=== PATIENT | female | born 1940 | race Caucasian/White ===

== ENCOUNTER 2017-03-07 15:56 | Inpatient (IN) | payer BC, MEDICARE ==
[~2017-03-07] VITALS: Ht 165.1 cm; Wt 100.7 kg
[~2017-03-07 15:56] MED LIST: AMLO10TA80; GLIPIZIDE; HTN MEDS; LOSA50TA20; NEPVIT; PRAV10TA35
[2017-03-07] MEDS ORDERED: DEXTROSE 50% WATER 50ML SYRINGE IV ONE ×3 (16:19→18:00)
[2017-03-07 16:49] LABS: BASOPHILS % 0.5 % (0.0-2.0); EOSINOPHILS % 1.3 % (0.0-5.0); HEMATOCRIT. 30.2 % (36.0-48.0); HEMOGLOBIN. 10.1 g/dL (12.0-16.0); LYMPHOCYTES % 16.9 % (20.0-50.0); MEAN CORPUSCULAR HEMOGLOBIN 29.6 pg (28.0-32.0); MEAN CORPUSCULAR VOLUME 88.1 fL (81.0-99.0); MEAN PLATELET VOLUME 7.4 fl (7.4-10.4); MONOCYTES % 7.7 % (2.0-8.0); NEUTROPHILS % 73.6 % (40.0-76.0); PLATELET 247 x1000/uL (130-400); RED BLOOD CELL COUNT 3.42 mill/uL (4.2-5.4); RED CELL DISTRIBUTION WIDTH 15.1 % (11.6-14.6)
[2017-03-07 16:50] LABS: CHLORIDE 108 mEq/L (98-107)
[2017-03-07 16:53] LABS: CARBON DIOXIDE 17 mEq/L (21-32)
[2017-03-07] MEDS ORDERED: DEXTROSE 10% WATER 500 ML IV ONE (18:00)
[2017-03-07 21:50] VITALS: BP 160/84
[2017-03-08] VITALS: BP 112/73
[2017-03-08] MEDS ORDERED: TRAMADOL 50MG TABLET PO PRN (01:00)
[2017-03-08] MEDS ORDERED: DEXTROSE 50% WATER 50ML SYRINGE IV PRN (01:45)
[2017-03-08] MEDS ORDERED: DEXT 10% WATER 1,000 ML IV SCH (02:00)
[2017-03-08 04:00] VITALS: BP 150/66
[2017-03-08 07:04] LABS: BASOPHILS % 0.3 % (0.0-2.0); EOSINOPHILS % 0.1 % (0.0-5.0); HEMOGLOBIN. 11.2 g/dL (12.0-16.0); LYMPHOCYTES % 15.1 % (20.0-50.0); MEAN CORPUSCULAR HEMOGLOBIN 30.1 pg (28.0-32.0); MEAN CORPUSCULAR VOLUME 88.8 fL (81.0-99.0); MEAN PLATELET VOLUME 7.4 fl (7.4-10.4); MONOCYTES % 2.9 % (2.0-8.0); NEUTROPHILS % 81.6 % (40.0-76.0); PLATELET 263 x1000/uL (130-400); RED BLOOD CELL COUNT 3.71 mill/uL (4.2-5.4); RED CELL DISTRIBUTION WIDTH 15.4 % (11.6-14.6)
[2017-03-08] MEDS: BLOOD SUGAR DIAGNOSTIC STRIP TEST SCH ×4 (07:15→21:28)
[2017-03-08 08:00] VITALS: BP 174/90
[2017-03-08] MEDS: ENOXAPARIN 40MG/0.4ML SYR SUBCUT SCH (08:00)
[2017-03-08] MEDS: ASPIRIN 81MG TABLET PO SCH (08:00)
[2017-03-08 12:00] VITALS: BP 168/102
[2017-03-08] MEDS: AMLODIPINE 5MG TABLET PO SCH ×2 (12:05→21:00)
[2017-03-08] MEDS ORDERED: DEXTROSE 5% WATER 1,000 ML IV SCH (15:30)
[2017-03-08 16:00] VITALS: BP 146/82
[2017-03-08 20:00] VITALS: BP 160/77
[2017-03-09] VITALS: BP 100/52
[2017-03-09] MEDS ORDERED: ALBUMIN HUMAN 25GM/100ML (25%) IV NR (00:30)
[2017-03-09 04:00] VITALS: BP 155/56
[2017-03-09] MEDS: BLOOD SUGAR DIAGNOSTIC STRIP TEST SCH ×4 (06:54→21:10)
[2017-03-09 06:59] LABS: BASOPHILS % 0.3 % (0.0-2.0); EOSINOPHILS % 0.5 % (0.0-5.0); HEMOGLOBIN. 11.4 g/dL (12.0-16.0); LYMPHOCYTES % 14.9 % (20.0-50.0); MEAN CORPUSCULAR HEMOGLOBIN 30.4 pg (28.0-32.0); MEAN CORPUSCULAR VOLUME 87.8 fL (81.0-99.0); MEAN PLATELET VOLUME 7.7 fl (7.4-10.4); MONOCYTES % 4.3 % (2.0-8.0); PLATELET 206 x1000/uL (130-400); RED BLOOD CELL COUNT 3.75 mill/uL (4.2-5.4); RED CELL DISTRIBUTION WIDTH 15.5 % (11.6-14.6)
[2017-03-09 08:00] VITALS: BP 126/63
[2017-03-09] MEDS: ASPIRIN 81MG TABLET PO SCH (08:10)
[2017-03-09] MEDS: AMLODIPINE 5MG TABLET PO SCH ×2 (08:11→21:12)
[2017-03-09] MEDS: ENOXAPARIN 40MG/0.4ML SYR SUBCUT SCH (08:11)
[2017-03-09 12:00] VITALS: BP 152/78
[2017-03-09 16:00] VITALS: BP 144/67
[2017-03-09 20:00] VITALS: BP 121/54
[2017-03-10] VITALS: BP 125/60
[2017-03-10 04:00] VITALS: BP 132/57
[2017-03-10 06:18] LABS: BASOPHILS % 0.5 % (0.0-2.0); EOSINOPHILS % 1.5 % (0.0-5.0); HEMATOCRIT. 31.8 % (36.0-48.0); HEMOGLOBIN. 10.8 g/dL (12.0-16.0); LYMPHOCYTES % 31.1 % (20.0-50.0); MEAN CORPUSCULAR HEMOGLOBIN 29.9 pg (28.0-32.0); MEAN CORPUSCULAR VOLUME 88.2 fL (81.0-99.0); MEAN PLATELET VOLUME 7.9 fl (7.4-10.4); MONOCYTES % 7.7 % (2.0-8.0); NEUTROPHILS % 59.2 % (40.0-76.0); PLATELET 213 x1000/uL (130-400); RED BLOOD CELL COUNT 3.61 mill/uL (4.2-5.4); RED CELL DISTRIBUTION WIDTH 15.3 % (11.6-14.6)
[2017-03-10] MEDS: BLOOD SUGAR DIAGNOSTIC STRIP TEST SCH ×4 (06:40→21:00)
[2017-03-10 06:48] LABS: CARBON DIOXIDE 17 mEq/L (21-32); CHLORIDE 100 mEq/L (98-107)
[2017-03-10 08:00] VITALS: BP 122/68
[2017-03-10] MEDS: ASPIRIN 81MG TABLET PO SCH (09:00)
[2017-03-10] MEDS: AMLODIPINE 5MG TABLET PO SCH ×2 (09:00→22:04)
[2017-03-10 12:00] VITALS: BP 107/73
[2017-03-10 16:00] VITALS: BP 150/78
[2017-03-10] MEDS ORDERED: ENOXAPARIN 40MG/0.4ML SYR SUBCUT SCH (18:00)
[2017-03-10 20:00] VITALS: BP 139/65
[2017-03-11] VITALS: BP 117/88
[2017-03-11 04:00] VITALS: BP 116/64
[2017-03-11 05:31] LABS: BASOPHILS % 0.6 % (0.0-2.0); HEMATOCRIT. 34.6 % (36.0-48.0); HEMOGLOBIN. 11.9 g/dL (12.0-16.0); LYMPHOCYTES % 31.1 % (20.0-50.0); MEAN CORPUSCULAR HEMOGLOBIN 29.8 pg (28.0-32.0); MEAN CORPUSCULAR VOLUME 86.7 fL (81.0-99.0); MEAN PLATELET VOLUME 7.8 fl (7.4-10.4); MONOCYTES % 10.1 % (2.0-8.0); NEUTROPHILS % 57.2 % (40.0-76.0); PLATELET 227 x1000/uL (130-400); RED BLOOD CELL COUNT 3.99 mill/uL (4.2-5.4); RED CELL DISTRIBUTION WIDTH 14.6 % (11.6-14.6)
[2017-03-11] MEDS: BLOOD SUGAR DIAGNOSTIC STRIP TEST SCH (07:20)
[2017-03-11 08:00] VITALS: BP 135/63
[2017-03-11] MEDS: ASPIRIN 81MG TABLET PO SCH (09:26)
[2017-03-11] MEDS: AMLODIPINE 5MG TABLET PO SCH (09:26)
[2017-03-11 12:00] VITALS: BP 102/57
== END 2017-03-11 15:45 | disposition home or self-care (01) | DRG 682 ==
LOC: ER 15:59 → 6EST 18:24 → ENRESERV 20:21
PROVIDERS: ADMIT Hospitalist; ATTEND Hospitalist
PROC: 5A1D60Z (ICD-10-PCS; principal; 2017-03-08)
DX: I12.0 Hypertensive chronic kidney disease with stage 5 chronic kidney disease or end stage renal disease (principal); N18.6 End stage renal disease; E44.0 Moderate protein-calorie malnutrition; E11.649 Type 2 diabetes mellitus with hypoglycemia without coma; E11.22 Type 2 diabetes mellitus with diabetic chronic kidney disease; D63.1 Anemia in chronic kidney disease; J44.9 Chronic obstructive pulmonary disease, unspecified; E78.00 Pure hypercholesterolemia, unspecified; E87.5 Hyperkalemia; Z79.84 Long term (current) use of oral hypoglycemic drugs; Z99.2 Dependence on renal dialysis; Z68.36 Body mass index [BMI] 36.0-36.9, adult
CPT/HCPCS: 36415; 71010; 80048; 80053; 82962; 83735; 85025; 93005; 96361; 96374; 96376; 99285; J1650; J7030; J7070; P9047

== ENCOUNTER 2018-05-22 06:09 | Inpatient (IN) | payer MEDICARE, OTHER ==
[~2018-05-22] VITALS: Ht 322.6 cm; Wt 88.5 kg
[2018-05-22] MEDS ORDERED: GENTAMICIN 80MG PREMIX 100 ML IV ONE (06:45)
[2018-05-22] MEDS ORDERED: VANCOMYCIN 1 G PREMIX 200 ML IV ONE (06:45)
[2018-05-22 07:28] LABS: HEMATOCRIT. 31.5 % (36.0-48.0); HEMOGLOBIN. 10.6 g/dL (12.0-16.0); MEAN CORPUSCULAR HEMOGLOBIN 31.4 pg (28.0-32.0); MEAN CORPUSCULAR VOLUME 92.9 fL (81.0-99.0); MEAN PLATELET VOLUME 6.7 fl (7.4-10.4); PLATELET 290 x1000/uL (130-400); RED BLOOD CELL COUNT 3.39 mill/uL (4.2-5.4); RED CELL DISTRIBUTION WIDTH 14.7 % (11.6-14.6)
[2018-05-22 07:31] LABS: CHLORIDE 105 mEq/L (98-107)
[2018-05-22 07:36] LABS: PARTIAL THROMBOPLASTIN TIME 33.5 sec (23.4-31.0); PROTHROMBIN TIME 10.4 sec (9.1-11.1)
[2018-05-22 07:37] LABS: PHOSPHORUS 5.2 mg/dL (2.5-4.9)
[2018-05-22 08:26] LABS: PLATELET ESTIMATE NORMAL
[2018-05-22] MEDS ORDERED: ONDANSETRON HCL 4MG/2ML INJ IV PRN (09:15)
[2018-05-22] MEDS ORDERED: VANCOMYCIN 1 G PREMIX 200 ML IV SCH ×2 (09:15→21:00)
[2018-05-22] MEDS ORDERED: CLONIDINE 0.1MG TABLET PO PRN (09:15)
[2018-05-22] MEDS ORDERED: HYDROMORPHONE HCL/PF 2MG/ML CPJ IV PRN (09:15)
[2018-05-22] MEDS ORDERED: ACETAMINOPHEN 325MG TABLET PO PRN (09:15)
[2018-05-22] MEDS ORDERED: MAGNESIUM/ALUMINUM HYDROXIDE/SIMETHICONE 30ML UDC PO PRN (09:15)
[2018-05-22] MEDS ORDERED: IPRATROPIUM/ALBUTEROL 0.5-3(2.5)MG/3ML NEB INH PRN (09:15)
[2018-05-22 10:54] LABS: CLARITY URINE CLEAR (CLEAR); COLOR URINE YELLOW (YELLOW); KETONES URINE NEGATIVE (NEGATIVE); LEUKOCYTE ESTERASE URINE NEGATIVE (NEGATIVE); NITRITE URINE NEGATIVE (NEGATIVE); OCCULT BLOOD URINE 1+ (NEGATIVE); PROTEIN URINE 2+ (NEGATIVE); UROBILINOGEN URINE 0.2 E.U./dL (0.2-1.0)
[2018-05-22] MEDS ORDERED: ENOXAPARIN 40MG/0.4ML SYR SUBCUT SCH (11:30)
[2018-05-22 11:59] VITALS: BP 153/98
[2018-05-22] MEDS: PIPERACILLIN/TAZ 2.25G PREMIX 50 ML IV SCH ×2 (12:30→21:13)
[2018-05-22] MEDS ORDERED: VANCOMYCIN 1500MG in DEXTROSE 5% WATER 250ML IV NR (13:15)
[2018-05-22 15:02] VITALS: BP 153/66
[2018-05-22 16:38] LABS: CREATINE KINASE MB FRACTION < 1.0 ng/mL (0.5-3.6)
[2018-05-22 17:12] VITALS: BP 173/65
[2018-05-22] MEDS ORDERED: DEXTROSE 50% WATER 50ML SYRINGE IV PRN (18:15)
[2018-05-22 20:00] VITALS: BP 168/62
[2018-05-22] MEDS: INSULIN LISPRO 100 UNITS/ML SUBCUT SCH (21:00)
[2018-05-22] MEDS: ATORVASTATIN CALCIUM 10MG TABLET PO SCH (21:13)
[2018-05-22] MEDS: ENOXAPARIN 30MG/0.3ML SYR SUBCUT SCH (21:13)
[2018-05-22] MEDS: BLOOD SUGAR DIAGNOSTIC STRIP TEST SCH (21:19)
[2018-05-23] VITALS: BP 149/59
[2018-05-23 00:15] LABS: CREATINE KINASE MB FRACTION < 1.0 ng/mL (0.5-3.6)
[2018-05-23 04:00] VITALS: BP 123/66
[2018-05-23] MEDS: PIPERACILLIN/TAZ 2.25G PREMIX 50 ML IV SCH ×3 (05:23→23:41)
[2018-05-23] MEDS: INSULIN LISPRO 100 UNITS/ML SUBCUT SCH ×4 (07:50→21:00)
[2018-05-23] MEDS: DOCUSATE SODIUM 250MG CAPSULE PO SCH (08:15)
[2018-05-23] MEDS: LOSARTAN POTASSIUM 25 MG TABLET PO SCH (08:15)
[2018-05-23] MEDS: FOLIC ACID/VITAMIN B COMP W-C TABLET PO SCH (08:15)
[2018-05-23] MEDS: AMLODIPINE 5MG TABLET PO SCH (08:15)
[2018-05-23] MEDS: BLOOD SUGAR DIAGNOSTIC STRIP TEST SCH ×4 (08:16→21:15)
[2018-05-23 08:24] VITALS: BP 138/52
[2018-05-23] MEDS ORDERED: VANCOMYCIN 1 G PREMIX 200 ML IV SCH (11:30)
[2018-05-23] MEDS: ENOXAPARIN 30MG/0.3ML SYR SUBCUT SCH (11:58)
[2018-05-23 12:03] LABS: BASOPHILS % 0.5 % (0.0-2.0); EOSINOPHILS % 1.2 % (0.0-5.0); HEMATOCRIT. 29.2 % (36.0-48.0); HEMOGLOBIN. 9.9 g/dL (12.0-16.0); LYMPHOCYTES % 16.5 % (20.0-50.0); MEAN CORPUSCULAR HEMOGLOBIN 31.9 pg (28.0-32.0); MEAN CORPUSCULAR VOLUME 93.7 fL (81.0-99.0); MONOCYTES % 8.7 % (2.0-8.0); NEUTROPHILS % 73.1 % (40.0-76.0); PLATELET 236 x1000/uL (130-400); RED BLOOD CELL COUNT 3.11 mill/uL (4.2-5.4); RED CELL DISTRIBUTION WIDTH 14.8 % (11.6-14.6)
[2018-05-23 12:29] VITALS: BP 133/52
[2018-05-23 16:30] VITALS: BP 135/50
[2018-05-23 20:00] VITALS: BP 165/68
[2018-05-23] MEDS: ATORVASTATIN CALCIUM 10MG TABLET PO SCH (21:25)
[2018-05-24] VITALS: BP 120/46
[2018-05-24 04:00] VITALS: BP 143/59
[2018-05-24] MEDS: PIPERACILLIN/TAZ 2.25G PREMIX 50 ML IV SCH ×3 (05:03→21:53)
[2018-05-24] MEDS: BLOOD SUGAR DIAGNOSTIC STRIP TEST SCH ×4 (06:34→21:53)
[2018-05-24 07:02] LABS: BASOPHILS % 0.6 % (0.0-2.0); EOSINOPHILS % 1.8 % (0.0-5.0); HEMATOCRIT. 27.6 % (36.0-48.0); HEMOGLOBIN. 9.5 g/dL (12.0-16.0); LYMPHOCYTES % 23.2 % (20.0-50.0); MEAN CORPUSCULAR HEMOGLOBIN 32.3 pg (28.0-32.0); MEAN CORPUSCULAR VOLUME 93.5 fL (81.0-99.0); MEAN PLATELET VOLUME 7.3 fl (7.4-10.4); NEUTROPHILS % 64.4 % (40.0-76.0); PLATELET 251 x1000/uL (130-400); RED BLOOD CELL COUNT 2.95 mill/uL (4.2-5.4); RED CELL DISTRIBUTION WIDTH 14.9 % (11.6-14.6)
[2018-05-24 07:04] LABS: CHLORIDE 104 mEq/L (98-107)
[2018-05-24] MEDS: INSULIN LISPRO 100 UNITS/ML SUBCUT SCH ×4 (07:50→21:00)
[2018-05-24 08:00] VITALS: BP 150/60
[2018-05-24] MEDS ORDERED: LACTULOSE 20G/30ML UDC PO SCH (08:30)
[2018-05-24] MEDS: AMLODIPINE 5MG TABLET PO SCH (08:31)
[2018-05-24] MEDS: LOSARTAN POTASSIUM 25 MG TABLET PO SCH (08:31)
[2018-05-24] MEDS: DOCUSATE SODIUM 250MG CAPSULE PO SCH (08:31)
[2018-05-24] MEDS: FOLIC ACID/VITAMIN B COMP W-C TABLET PO SCH (08:31)
[2018-05-24] MEDS: ENOXAPARIN 30MG/0.3ML SYR SUBCUT SCH (11:57)
[2018-05-24 12:00] VITALS: BP 143/63
[2018-05-24] MEDS ORDERED: VANCOMYCIN 750 MG PREMIX 150 ML IV SCH (14:00)
[2018-05-24 16:00] VITALS: BP 129/57
[2018-05-24 20:00] VITALS: BP 139/60
[2018-05-24] MEDS: ATORVASTATIN CALCIUM 10MG TABLET PO SCH (21:53)
[2018-05-25] VITALS: BP 144/60
[2018-05-25 04:00] VITALS: BP 132/59
[2018-05-25] MEDS: PIPERACILLIN/TAZ 2.25G PREMIX 50 ML IV SCH (05:56)
[2018-05-25] MEDS: BLOOD SUGAR DIAGNOSTIC STRIP TEST SCH (06:49)
[2018-05-25 06:53] LABS: BASOPHILS % 0.8 % (0.0-2.0); EOSINOPHILS % 2.6 % (0.0-5.0); HEMATOCRIT. 28.9 % (36.0-48.0); HEMOGLOBIN. 9.9 g/dL (12.0-16.0); LYMPHOCYTES % 29.4 % (20.0-50.0); MEAN CORPUSCULAR HEMOGLOBIN 32.1 pg (28.0-32.0); MEAN CORPUSCULAR VOLUME 93.4 fL (81.0-99.0); MEAN PLATELET VOLUME 7.4 fl (7.4-10.4); MONOCYTES % 10.4 % (2.0-8.0); NEUTROPHILS % 56.8 % (40.0-76.0); PLATELET 261 x1000/uL (130-400); RED BLOOD CELL COUNT 3.09 mill/uL (4.2-5.4)
[2018-05-25] MEDS: INSULIN LISPRO 100 UNITS/ML SUBCUT SCH (07:24)
[2018-05-25 07:44] LABS: CHLORIDE 100 mEq/L (98-107)
[2018-05-25 08:00] VITALS: BP 147/46
[2018-05-25] MEDS: FOLIC ACID/VITAMIN B COMP W-C TABLET PO SCH (08:14)
[2018-05-25] MEDS: DOCUSATE SODIUM 250MG CAPSULE PO SCH (08:14)
[2018-05-25] MEDS: LOSARTAN POTASSIUM 25 MG TABLET PO SCH (08:14)
[2018-05-25] MEDS: AMLODIPINE 5MG TABLET PO SCH (08:14)
[2018-05-25 10:46] VITALS: BP 136/86
[2018-05-25 12:00] VITALS: BP 165/66
== END 2018-05-25 11:46 | disposition home or self-care (01) | DRG 871 ==
LOC: ER 07:22 → 6WST 07:45 → EDBEDREQ 07:55 → ENRESERV 09:15 → 6WST 05-25 00:15
PROVIDERS: ADMIT Internal Medicine Geriatric Medicine; ATTEND Internal Medicine Geriatric Medicine
PROC: 5A1D70Z Performance of Urinary Filtration, Intermittent, Less than 6 Hours Per Day (ICD-10-PCS; principal; 2018-05-22)
PROC: 5A1D70Z Performance of Urinary Filtration, Intermittent, Less than 6 Hours Per Day (ICD-10-PCS; 2018-05-23)
PROC: 5A1D70Z Performance of Urinary Filtration, Intermittent, Less than 6 Hours Per Day (ICD-10-PCS; 2018-05-24)
DX: A41.9 Sepsis, unspecified organism (principal); N18.6 End stage renal disease; I12.0 Hypertensive chronic kidney disease with stage 5 chronic kidney disease or end stage renal disease; J20.9 Acute bronchitis, unspecified; Z99.2 Dependence on renal dialysis; E11.22 Type 2 diabetes mellitus with diabetic chronic kidney disease; E11.649 Type 2 diabetes mellitus with hypoglycemia without coma; E78.5 Hyperlipidemia, unspecified; G47.00 Insomnia, unspecified; E78.00 Pure hypercholesterolemia, unspecified; J06.9 Acute upper respiratory infection, unspecified; D63.8 Anemia in other chronic diseases classified elsewhere; E66.9 Obesity, unspecified; E11.69 Type 2 diabetes mellitus with other specified complication; K59.00 Constipation, unspecified; Z79.899 Other long term (current) drug therapy
CPT/HCPCS: 36415; 71045; 80048; 80053; 80202; 81003; 82040; 82270; 82553; 82962; 83605; 83690; 83735; 84100; 84484; 85025; 85610; 85730; 87040; 87086; 87804; 93005; 93306; 93970; 99291; J1580; J1650; J1815; J2543; J3370; J7030; J7050; J7060

== ENCOUNTER 2018-09-14 11:27 | Emergency (ER) | payer MEDICARE, OTHER ==
[~2018-09-14] VITALS: Ht 167.6 cm; Wt 87.0 kg
[~2018-09-14 11:27] MED LIST changes: -GLIPIZIDE; -HTN MEDS
[2018-09-14 22:54] VITALS: BP 175/63
[2018-09-14 23:09] LABS: BASOPHILS % 0.9 % (0.0-2.0); EOSINOPHILS % 2.7 % (0.0-5.0); HEMATOCRIT. 30.5 % (36.0-48.0); HEMOGLOBIN. 10.2 g/dL (12.0-16.0); LYMPHOCYTES % 22.1 % (20.0-50.0); MEAN CORPUSCULAR VOLUME 92.6 fL (81.0-99.0); MONOCYTES % 9.3 % (2.0-8.0); PLATELET 302 x1000/uL (130-400); RED BLOOD CELL COUNT 3.29 mill/uL (4.2-5.4); RED CELL DISTRIBUTION WIDTH 14.7 % (11.6-14.6)
[2018-09-14 23:14] LABS: CHLORIDE 104 mEq/L (98-107)
[2018-09-14 23:17] LABS: PARTIAL THROMBOPLASTIN TIME 32.8 sec (23.4-31.0); PROTHROMBIN TIME 10.3 sec (9.1-11.1)
== END 2018-09-15 01:18 | disposition home or self-care (01) ==
LOC: ER 11:27
DX: N64.52 Nipple discharge (principal); I12.0 Hypertensive chronic kidney disease with stage 5 chronic kidney disease or end stage renal disease; E11.22 Type 2 diabetes mellitus with diabetic chronic kidney disease; N18.6 End stage renal disease; Z99.2 Dependence on renal dialysis; Z79.899 Other long term (current) drug therapy
CPT/HCPCS: 36415; 71045; 99284

== ENCOUNTER 2018-09-22 09:55 | Inpatient (IN) | payer OTHER, MEDICARE ==
[~2018-09-22] VITALS: Ht 170.2 cm; Wt 86.6 kg
[2018-09-22 11:38] LABS: BASOPHILS % 0.6 % (0.0-2.0); EOSINOPHILS % 1.1 % (0.0-5.0); HEMATOCRIT. 29.4 % (36.0-48.0); LYMPHOCYTES % 11.2 % (20.0-50.0); MEAN CORPUSCULAR HEMOGLOBIN 30.7 pg (28.0-32.0); MEAN CORPUSCULAR VOLUME 90.7 fL (81.0-99.0); MEAN PLATELET VOLUME 6.8 fl (7.4-10.4); MONOCYTES % 5.9 % (2.0-8.0); NEUTROPHILS % 81.2 % (40.0-76.0); PLATELET 298 x1000/uL (130-400); RED BLOOD CELL COUNT 3.25 mill/uL (4.2-5.4); RED CELL DISTRIBUTION WIDTH 14.2 % (11.6-14.6)
[2018-09-22 11:46] LABS: CHLORIDE 95 mEq/L (98-107)
[2018-09-22 13:01] LABS: CLARITY URINE CLOUDY (CLEAR); COLOR URINE YELLOW (YELLOW); KETONES URINE NEGATIVE (NEGATIVE); LEUKOCYTE ESTERASE URINE 2+ (NEGATIVE); NITRITE URINE NEGATIVE (NEGATIVE); OCCULT BLOOD URINE 1+ (NEGATIVE); PROTEIN URINE 3+ (NEGATIVE); SPECIFIC GRAVITY URINE 1.006 (1.005-1.030); UROBILINOGEN URINE 0.2 E.U./dL (0.2-1.0)
[2018-09-22] MEDS ORDERED: CEFTRIAXONE 1 G PREMIX 50 ML IV ONE (13:30)
[2018-09-22] MEDS ORDERED: GUAIFENESIN 200MG/10ML SUGAR FREE UDC PO PRN (14:00)
[2018-09-22] MEDS ORDERED: DOCUSATE SODIUM 100MG CAPSULE PO PRN (14:00)
[2018-09-22] MEDS ORDERED: IPRATROPIUM/ALBUTEROL 0.5-3(2.5)MG/3ML NEB INH PRN (14:00)
[2018-09-22] MEDS ORDERED: DIPHENHYDRAMINE 50MG/ML VIAL IV PRN (14:00)
[2018-09-22] MEDS ORDERED: HYDROCODONE/ACETAMINOPHEN 5/325MG TABLET PO PRN (14:00)
[2018-09-22] MEDS ORDERED: LORAZEPAM 2MG/ML CPJ IV PRN (14:00)
[2018-09-22] MEDS ORDERED: ONDANSETRON HCL 4MG/2ML INJ IV PRN (14:00)
[2018-09-22] MEDS ORDERED: CLONIDINE 0.1MG TABLET PO PRN (14:00)
[2018-09-22] MEDS ORDERED: NA PHOS,M-B/NA PHOS,DI-BA ENEMA 118ML PR PRN (14:00)
[2018-09-22] MEDS ORDERED: MAGNESIUM/ALUMINUM HYDROXIDE/SIMETHICONE 30ML UDC PO PRN (14:00)
[2018-09-22] MEDS ORDERED: ACETAMINOPHEN 325MG TABLET PO PRN (14:00)
[2018-09-22 16:15] VITALS: BP 182/73
[2018-09-22] MEDS: ENOXAPARIN 30MG/0.3ML SYR SUBCUT SCH (16:44)
[2018-09-22] MEDS ORDERED: PIPERACILLIN/TAZ 3.375G PREMIX 50 ML IV NR (18:00)
[2018-09-22 18:07] VITALS: BP 182/73
[2018-09-22] MEDS ORDERED: DEXTROSE 50% WATER 50ML SYRINGE IV PRN (18:30)
[2018-09-22 20:00] VITALS: BP 146/77
[2018-09-22] MEDS ORDERED: LEVOFLOXACIN 500MG PREMIX 100 ML IV NR (20:00)
[2018-09-22] MEDS: BLOOD SUGAR DIAGNOSTIC STRIP TEST SCH (22:05)
[2018-09-22] MEDS: INSULIN LISPRO 100 UNITS/ML SUBCUT SCH (22:10)
[2018-09-23] VITALS: BP 145/64
[2018-09-23] MEDS: PIPERACILLIN/TAZ 2.25G PREMIX 50 ML IV SCH ×3 (01:26→18:17)
[2018-09-23 04:00] VITALS: BP 147/71
[2018-09-23 06:40] LABS: BASOPHILS % 0.8 % (0.0-2.0); EOSINOPHILS % 1.9 % (0.0-5.0); HEMATOCRIT. 27.4 % (36.0-48.0); HEMOGLOBIN. 9.2 g/dL (12.0-16.0); LYMPHOCYTES % 28.6 % (20.0-50.0); MEAN CORPUSCULAR HEMOGLOBIN 30.8 pg (28.0-32.0); MEAN CORPUSCULAR VOLUME 91.6 fL (81.0-99.0); MEAN PLATELET VOLUME 7.1 fl (7.4-10.4); MONOCYTES % 13.9 % (2.0-8.0); NEUTROPHILS % 54.8 % (40.0-76.0); PLATELET 256 x1000/uL (130-400); RED BLOOD CELL COUNT 2.99 mill/uL (4.2-5.4); RED CELL DISTRIBUTION WIDTH 14.5 % (11.6-14.6)
[2018-09-23] MEDS: BLOOD SUGAR DIAGNOSTIC STRIP TEST SCH ×4 (07:00→22:20)
[2018-09-23 07:10] LABS: CHLORIDE 100 mEq/L (98-107)
[2018-09-23 07:49] LABS: LDL CHOLESTEROL 58 mg/dL (5-100)
[2018-09-23 07:50] LABS: HDL CHOLESTEROL 40 mg/dL (40-59)
[2018-09-23] MEDS: INSULIN LISPRO 100 UNITS/ML SUBCUT SCH ×4 (07:50→22:25)
[2018-09-23 08:00] VITALS: BP 134/72
[2018-09-23 12:00] VITALS: BP 159/62
[2018-09-23 16:00] VITALS: BP 147/59
[2018-09-23] MEDS: ENOXAPARIN 30MG/0.3ML SYR SUBCUT SCH (17:12)
[2018-09-23 20:00] VITALS: BP 132/75
[2018-09-24] VITALS: BP 159/66
[2018-09-24] MEDS: PIPERACILLIN/TAZ 2.25G PREMIX 50 ML IV SCH ×2 (02:00→11:01)
[2018-09-24 04:00] VITALS: BP 136/67
[2018-09-24] MEDS: BLOOD SUGAR DIAGNOSTIC STRIP TEST SCH ×2 (07:20→12:13)
[2018-09-24 08:00] VITALS: BP 175/74
[2018-09-24] MEDS ORDERED: AMLODIPINE 10MG TABLET PO SCH (09:00)
[2018-09-24] MEDS ORDERED: LOSARTAN POTASSIUM 50 MG TABLET PO SCH (09:00)
[2018-09-24] MEDS: INSULIN LISPRO 100 UNITS/ML SUBCUT SCH ×2 (10:00→12:37)
[2018-09-24 12:00] VITALS: BP 177/80
[2018-09-24 14:02] VITALS: BP_SYST 154; BP_SYST 177; BP_DIAS 80
[2018-09-24 16:00] VITALS: BP_SYST 149; BP_SYST 151; BP_DIAS 74; BP_DIAS 75
[2018-09-24] MEDS ORDERED: LEVOFLOXACIN 250MG PREMIX 50 ML IV SCH (20:00)
== END 2018-09-24 16:37 | disposition home or self-care (01) | DRG 689 ==
LOC: ER 09:55 → 6EST 13:31 → EDBEDREQ 13:35 → ENRESERV 13:59
PROVIDERS: ADMIT Internal Medicine; ATTEND Internal Medicine
PROC: 5A1D70Z Performance of Urinary Filtration, Intermittent, Less than 6 Hours Per Day (ICD-10-PCS; principal; 2018-09-23)
DX: N39.0 Urinary tract infection, site not specified (principal); N18.6 End stage renal disease; R65.10 Systemic inflammatory response syndrome (SIRS) of non-infectious origin without acute organ dysfunction; I12.0 Hypertensive chronic kidney disease with stage 5 chronic kidney disease or end stage renal disease; E86.0 Dehydration; E11.22 Type 2 diabetes mellitus with diabetic chronic kidney disease; D64.9 Anemia, unspecified; B96.20 Unspecified Escherichia coli [E. coli] as the cause of diseases classified elsewhere; E78.00 Pure hypercholesterolemia, unspecified; E66.3 Overweight; Z68.29 Body mass index [BMI] 29.0-29.9, adult; Z99.2 Dependence on renal dialysis
CPT/HCPCS: 36415; 71045; 80061; 82962; 84484; 87077; 87186; 93005; 96365; 97116; 97162; 99291; J0696; J1650; J1815; J1956; J2543

== ENCOUNTER 2018-11-22 04:57 | Emergency (ER) | payer OTHER, MEDICARE ==
[~2018-11-22] VITALS: Ht 170.2 cm; Wt 88.0 kg
[2018-11-22 06:00] VITALS: BP 129/88
== END 2018-11-22 06:53 | disposition home or self-care (01) ==
LOC: ER 06:21
DX: I12.0 Hypertensive chronic kidney disease with stage 5 chronic kidney disease or end stage renal disease (principal); E11.22 Type 2 diabetes mellitus with diabetic chronic kidney disease; N18.6 End stage renal disease; N64.52 Nipple discharge; Z99.2 Dependence on renal dialysis
CPT/HCPCS: 99281

== ENCOUNTER 2019-02-05 15:39 | Inpatient (IN) | payer MEDICARE ==
[~2019-02-05] VITALS: Ht 170.2 cm; Wt 90.7 kg
[~2019-02-05 15:39] MED LIST changes: -AMLO10TA80; +AMLO10TA80 PO; +CINA30 PO; -LOSA50TA20; +MULT-1146 PO; -NEPVIT; +NEPVIT PO; +OMEG-90 PO; -PRAV10TA35; +PRAV10TA35 PO; +REN800 PO
[2019-02-05] MEDS ORDERED: CLONIDINE 0.2MG TABLET PO ONE (16:45)
[2019-02-05 16:49] LABS: BASOPHILS % 0.9 % (0.0-2.0); EOSINOPHILS % 1.5 % (0.0-5.0); HEMATOCRIT. 26.3 % (36.0-48.0); HEMOGLOBIN. 8.9 g/dL (12.0-16.0); LYMPHOCYTES % 13.4 % (20.0-50.0); MEAN CORPUSCULAR HEMOGLOBIN 29.1 pg (28.0-32.0); MEAN CORPUSCULAR VOLUME 85.7 fL (81.0-99.0); MEAN PLATELET VOLUME 6.2 fl (7.4-10.4); MONOCYTES % 10.3 % (2.0-8.0); NEUTROPHILS % 73.9 % (40.0-76.0); PLATELET 265 x1000/uL (130-400); RED BLOOD CELL COUNT 3.06 mill/uL (4.2-5.4)
[2019-02-05 16:54] LABS: CHLORIDE 93 mEq/L (98-107)
[2019-02-05] MEDS ORDERED: ASPIRIN 81MG TABLET PO ONE (17:15)
[2019-02-05 17:20] LABS: D-DIMER 1.31 mg/L FEU (<0.50); INR 1.1; PARTIAL THROMBOPLASTIN TIME 33.1 sec (23.4-31.0); PROTHROMBIN TIME 11.3 sec (9.6-11.0)
[2019-02-05] MEDS ORDERED: LEVOFLOXACIN 750MG PREMIX 150 ML IV ONE (19:00)
[2019-02-05] MEDS ORDERED: IOHEXOL-350 100 ML BOTTLE ONE (19:41)
[2019-02-05 23:04] VITALS: BP 155/62
[2019-02-05] MEDS ORDERED: HYDRALAZINE 20MG/ML VIAL IV PRN (23:30)
[2019-02-05] MEDS ORDERED: DEXTROSE 50% WATER 50ML SYRINGE IV PRN (23:30)
[2019-02-05] MEDS ORDERED: DIPHENHYDRAMINE 50MG/ML VIAL IV PRN (23:30)
[2019-02-05] MEDS ORDERED: ONDANSETRON HCL 4MG/2ML INJ IV PRN (23:30)
[2019-02-05] MEDS ORDERED: CLONIDINE 0.1MG TABLET PO PRN (23:30)
[2019-02-05] MEDS ORDERED: ACETAMINOPHEN 325MG TABLET PO PRN (23:30)
[2019-02-05] MEDS ORDERED: IPRATROPIUM/ALBUTEROL 0.5-3(2.5)MG/3ML NEB INH PRN (23:30)
[2019-02-06] VITALS: BP 157/84
[2019-02-06] MEDS: ATORVASTATIN CALCIUM 10MG TABLET PO SCH (00:25)
[2019-02-06 04:00] VITALS: BP 154/55
[2019-02-06] MEDS: BLOOD SUGAR DIAGNOSTIC STRIP TEST SCH ×4 (06:33→21:00)
[2019-02-06] MEDS ORDERED: HYDRALAZINE 20MG/ML VIAL IV PRN (07:00)
[2019-02-06] MEDS: INSULIN LISPRO 100 UNITS/ML SUBCUT SCH ×4 (07:30→21:00)
[2019-02-06] MEDS: SODIUM CHLORIDE 0.9% INJ 3ML FLUSH IVF SCH ×2 (07:45→14:55)
[2019-02-06] MEDS: LOSARTAN POTASSIUM 50 MG TABLET PO SCH (10:00)
[2019-02-06] MEDS: FOLIC ACID/VITAMIN B COMP W-C TABLET PO SCH (10:00)
[2019-02-06] MEDS: AMLODIPINE 10MG TABLET PO SCH (10:01)
[2019-02-06 10:56] VITALS: BP 190/68
[2019-02-06 12:37] VITALS: BP 168/73
[2019-02-06 16:07] VITALS: BP 174/65
[2019-02-06 16:39] LABS: PHOSPHORUS 6.3 mg/dL (2.5-4.9)
[2019-02-06] MEDS: CINACALCET HCL 30MG TABLET PO SCH (16:48)
[2019-02-06] MEDS: CLONIDINE 0.1MG TABLET PO PRN (16:48)
[2019-02-06 20:00] VITALS: BP 185/82
[2019-02-06] MEDS: IPRATROPIUM/ALBUTEROL 0.5-3(2.5)MG/3ML NEB HHN SCH (20:28)
[2019-02-06] MEDS ORDERED: EPOETIN ALFA 10000UNITS/ML VIAL SUBCUT SCH (21:00)
[2019-02-07] VITALS: BP 149/57
[2019-02-07] MEDS: ATORVASTATIN CALCIUM 10MG TABLET PO SCH (00:21)
[2019-02-07] MEDS: SODIUM CHLORIDE 0.9% INJ 3ML FLUSH IVF SCH ×3 (00:22→14:00)
[2019-02-07] MEDS: IPRATROPIUM/ALBUTEROL 0.5-3(2.5)MG/3ML NEB HHN SCH ×3 (02:22→14:17)
[2019-02-07 04:00] VITALS: BP 129/108
[2019-02-07] MEDS: BLOOD SUGAR DIAGNOSTIC STRIP TEST SCH ×2 (06:14→12:40)
[2019-02-07 06:19] LABS: BASOPHILS % 0.6 % (0.0-2.0); EOSINOPHILS % 0.9 % (0.0-5.0); HEMATOCRIT. 23.3 % (36.0-48.0); HEMOGLOBIN. 7.9 g/dL (12.0-16.0); LYMPHOCYTES % 13.5 % (20.0-50.0); MEAN CORPUSCULAR HEMOGLOBIN 28.9 pg (28.0-32.0); MEAN CORPUSCULAR VOLUME 85.6 fL (81.0-99.0); MEAN PLATELET VOLUME 6.6 fl (7.4-10.4); MONOCYTES % 12.3 % (2.0-8.0); NEUTROPHILS % 72.7 % (40.0-76.0); PLATELET 248 x1000/uL (130-400); RED BLOOD CELL COUNT 2.72 mill/uL (4.2-5.4); RED CELL DISTRIBUTION WIDTH 17.7 % (11.6-14.6)
[2019-02-07] MEDS: INSULIN LISPRO 100 UNITS/ML SUBCUT SCH ×2 (07:30→13:14)
[2019-02-07] MEDS ORDERED: FOLIC ACID/VITAMIN B COMP W-C TABLET PO SCH (09:00)
[2019-02-07] MEDS: CINACALCET HCL 30MG TABLET PO SCH (09:28)
[2019-02-07] MEDS: FOLIC ACID/VITAMIN B COMP W-C TABLET PO SCH (09:28)
[2019-02-07] MEDS: LOSARTAN POTASSIUM 50 MG TABLET PO SCH (09:28)
[2019-02-07] MEDS: AMLODIPINE 10MG TABLET PO SCH (09:29)
[2019-02-07 12:13] VITALS: BP 172/68
[2019-02-07] MEDS ORDERED: SEVELAMER CARBONATE 800 MG TABLET PO SCH (13:10)
[2019-02-07] MEDS: CLONIDINE 0.1MG TABLET PO PRN (14:27)
[2019-02-07 14:29] VITALS: BP 172/68
[2019-02-07] MEDS ORDERED: FAMOTIDINE 20MG TABLET PO SCH (21:00)
== END 2019-02-07 14:55 | disposition home or self-care (01) | DRG 291 ==
LOC: ER 15:45 → EDBEDREQTM 19:02 → EDBEDREQ 19:02 → ENRESERV 22:11 → 7WST 23:39
PROVIDERS: ADMIT Internal Medicine; ATTEND Internal Medicine
PROC: 5A1D70Z Performance of Urinary Filtration, Intermittent, Less than 6 Hours Per Day (ICD-10-PCS; principal; 2019-02-06)
DX: I13.2 Hypertensive heart and chronic kidney disease with heart failure and with stage 5 chronic kidney disease, or end stage renal disease (principal); J96.00 Acute respiratory failure, unspecified whether with hypoxia or hypercapnia; N18.6 End stage renal disease; I50.43 Acute on chronic combined systolic (congestive) and diastolic (congestive) heart failure; E87.1 Hypo-osmolality and hyponatremia; D64.9 Anemia, unspecified; E78.5 Hyperlipidemia, unspecified; E83.39 Other disorders of phosphorus metabolism; E11.22 Type 2 diabetes mellitus with diabetic chronic kidney disease; Z82.49 Family history of ischemic heart disease and other diseases of the circulatory system; Z99.2 Dependence on renal dialysis; Z79.899 Other long term (current) drug therapy
CPT/HCPCS: 36415; 71045; 71275; 80048; 82962; 83605; 83880; 84100; 84484; 85379; 93005; 93306; 93970; 94640; 96365; 96366; 99285; J0360; J0885; J1815; J1956; J7620; Q9967

== ENCOUNTER 2019-02-09 16:11 | Emergency (ER) | payer MEDICARE ==
[~2019-02-09] VITALS: Ht 170.2 cm; Wt 88.0 kg
[2019-02-09 19:10] VITALS: BP 165/85
== END 2019-02-09 19:40 | disposition home or self-care (01) ==
LOC: ER 16:11
DX: R51 Headache (principal); E11.9 Type 2 diabetes mellitus without complications; I12.9 Hypertensive chronic kidney disease with stage 1 through stage 4 chronic kidney disease, or unspecified chronic kidney disease; E11.22 Type 2 diabetes mellitus with diabetic chronic kidney disease; N18.9 Chronic kidney disease, unspecified; Z99.2 Dependence on renal dialysis; Z79.899 Other long term (current) drug therapy; W01.0XXA Fall on same level from slipping, tripping and stumbling without subsequent striking against object, initial encounter; Y93.89 Activity, other specified; Y92.89 Other specified places as the place of occurrence of the external cause; Y99.8 Other external cause status
CPT/HCPCS: 99284

== ENCOUNTER 2019-02-13 03:49 | Inpatient (IN) | payer MEDICARE ==
[~2019-02-13] VITALS: Ht 170.2 cm; Wt 88.0 kg
[2019-02-13] MEDS ORDERED: NITROGLYCERIN 0.4MG TABLET SL SL PRN ×2 (04:30→08:30)
[2019-02-13] MEDS ORDERED: ASPIRIN 81MG TABLET PO ONE (04:30)
[2019-02-13 04:46] LABS: EOSINOPHILS % 2.8 % (0.0-5.0); HEMATOCRIT. 28.3 % (36.0-48.0); HEMOGLOBIN. 9.5 g/dL (12.0-16.0); LYMPHOCYTES % 16.8 % (20.0-50.0); MEAN CORPUSCULAR HEMOGLOBIN 28.7 pg (28.0-32.0); MEAN CORPUSCULAR VOLUME 85.3 fL (81.0-99.0); NEUTROPHILS % 68.4 % (40.0-76.0); PLATELET 327 x1000/uL (130-400); RED BLOOD CELL COUNT 3.32 mill/uL (4.2-5.4)
[2019-02-13 04:53] LABS: CHLORIDE 94 mEq/L (98-107)
[2019-02-13 05:01] LABS: PARTIAL THROMBOPLASTIN TIME 33.1 sec (23.4-31.0); PROTHROMBIN TIME 10.7 sec (9.6-11.0)
[2019-02-13] MEDS ORDERED: MORPHINE SULFATE 4 MG/ML CPJ (NOT FOR IM USE) IV ONE (06:00)
[2019-02-13] MEDS ORDERED: NITROGLYCERIN OINT 1GM/INCH UDPKT TD ONE (07:00)
[2019-02-13 08:00] VITALS: BP 186/74
[2019-02-13] MEDS ORDERED: DOCUSATE SODIUM 100MG CAPSULE PO PRN (08:30)
[2019-02-13] MEDS ORDERED: ONDANSETRON HCL 4MG/2ML INJ IV PRN (08:30)
[2019-02-13] MEDS ORDERED: LORAZEPAM 0.5MG TABLET PO PRN (08:30)
[2019-02-13] MEDS ORDERED: ACETAMINOPHEN 325MG TABLET PO PRN (08:30)
[2019-02-13] MEDS ORDERED: TRAMADOL 50MG TABLET PO PRN (08:30)
[2019-02-13] MEDS ORDERED: MAGNESIUM/ALUMINUM HYDROXIDE/SIMETHICONE 30ML UDC PO PRN (08:30)
[2019-02-13] MEDS ORDERED: DEXTROSE 50% WATER 50ML SYRINGE IV PRN (08:30)
[2019-02-13] MEDS ORDERED: GUAIFENESIN 200MG/10ML SUGAR FREE UDC PO PRN (08:30)
[2019-02-13] MEDS ORDERED: IPRATROPIUM/ALBUTEROL 0.5-3(2.5)MG/3ML NEB INH PRN (08:30)
[2019-02-13] MEDS: INSULIN LISPRO 100 UNITS/ML SUBCUT SCH ×4 (08:36→21:00)
[2019-02-13] MEDS: BLOOD SUGAR DIAGNOSTIC STRIP TEST SCH ×4 (08:36→21:45)
[2019-02-13] MEDS: AMLODIPINE 10MG TABLET PO SCH (09:00)
[2019-02-13] MEDS: LISINOPRIL 20MG TABLET PO SCH ×2 (09:00→21:00)
[2019-02-13] MEDS: METOPROLOL TARTRATE 25MG TABLET PO SCH ×2 (09:00→21:00)
[2019-02-13] MEDS: FAMOTIDINE 20MG TABLET PO SCH (10:28)
[2019-02-13] MEDS: ASPIRIN 325MG EC TABLET PO SCH (10:28)
[2019-02-13] MEDS: FOLIC ACID/VITAMIN B COMP W-C TABLET PO SCH (10:28)
[2019-02-13] MEDS: ENOXAPARIN 30MG/0.3ML SYR SUBCUT SCH (10:29)
[2019-02-13 12:00] VITALS: BP 156/79
[2019-02-13] MEDS: SEVELAMER CARBONATE 800 MG TABLET PO SCH ×2 (13:10→16:59)
[2019-02-13 17:12] VITALS: BP 178/66
[2019-02-13 18:20] LABS: CREATINE KINASE MB FRACTION 1.4 ng/mL (0.5-3.6)
[2019-02-13 20:00] VITALS: BP 195/84
[2019-02-13] MEDS ORDERED: ZOLPIDEM TARTRATE 5MG TABLET PO PRN (21:00)
[2019-02-14] VITALS: BP 174/102
[2019-02-14 00:25] LABS: CREATINE KINASE MB FRACTION 1.1 ng/mL (0.5-3.6)
[2019-02-14] MEDS: CLONIDINE 0.1MG TABLET PO PRN (01:39)
[2019-02-14 04:00] VITALS: BP 157/67
[2019-02-14] MEDS: INSULIN LISPRO 100 UNITS/ML SUBCUT SCH ×4 (06:29→22:04)
[2019-02-14] MEDS: BLOOD SUGAR DIAGNOSTIC STRIP TEST SCH ×4 (06:29→20:12)
[2019-02-14] MEDS: SEVELAMER CARBONATE 800 MG TABLET PO SCH ×3 (06:47→17:25)
[2019-02-14 08:00] VITALS: BP 166/72
[2019-02-14] MEDS: FAMOTIDINE 20MG TABLET PO SCH (08:14)
[2019-02-14] MEDS: ASPIRIN 325MG EC TABLET PO SCH (08:14)
[2019-02-14] MEDS: ENOXAPARIN 30MG/0.3ML SYR SUBCUT SCH (08:14)
[2019-02-14] MEDS: AMLODIPINE 10MG TABLET PO SCH (08:15)
[2019-02-14] MEDS: FOLIC ACID/VITAMIN B COMP W-C TABLET PO SCH (08:15)
[2019-02-14] MEDS: LISINOPRIL 20MG TABLET PO SCH ×2 (08:20→22:00)
[2019-02-14] MEDS: METOPROLOL TARTRATE 25MG TABLET PO SCH ×2 (08:23→22:00)
[2019-02-14 08:52] LABS: *AMPHETAMINES SCREEN URINE NEGATIVE (NEGATIVE); *BARBITURATES SCREEN URINE NEGATIVE (NEGATIVE); *BENZODIAZEPINES SCREEN URINE NEGATIVE (NEGATIVE); *COCAINE SCREEN URINE NEGATIVE (NEGATIVE)
[2019-02-14 08:53] LABS: CANNABINOID URINE SCREEN NEGATIVE (NEGATIVE); METHADONE URINE SCREEN NEGATIVE (NEGATIVE); OPIATES URINE SCREEN NEGATIVE (NEGATIVE); PHENCYCLIDINE URINE SCREEN NEGATIVE (NEGATIVE)
[2019-02-14 12:00] VITALS: BP 116/68
[2019-02-14 17:34] VITALS: BP 129/64
[2019-02-14 20:00] VITALS: BP 142/62
[2019-02-15] VITALS: BP 184/76
[2019-02-15] MEDS: CLONIDINE 0.1MG TABLET PO PRN (01:40)
[2019-02-15] MEDS: SEVELAMER CARBONATE 800 MG TABLET PO SCH ×2 (06:56→12:40)
[2019-02-15] MEDS: BLOOD SUGAR DIAGNOSTIC STRIP TEST SCH ×2 (06:56→12:43)
[2019-02-15] MEDS: INSULIN LISPRO 100 UNITS/ML SUBCUT SCH ×2 (06:57→12:40)
[2019-02-15 08:12] VITALS: BP 150/62
[2019-02-15] MEDS: AMLODIPINE 10MG TABLET PO SCH (08:38)
[2019-02-15] MEDS: METOPROLOL TARTRATE 25MG TABLET PO SCH (08:39)
[2019-02-15] MEDS: FOLIC ACID/VITAMIN B COMP W-C TABLET PO SCH (08:39)
[2019-02-15] MEDS: LISINOPRIL 20MG TABLET PO SCH (08:39)
[2019-02-15] MEDS: FAMOTIDINE 20MG TABLET PO SCH (08:39)
[2019-02-15] MEDS: ENOXAPARIN 30MG/0.3ML SYR SUBCUT SCH (08:39)
[2019-02-15] MEDS: ASPIRIN 325MG EC TABLET PO SCH (08:39)
[2019-02-15 11:31] VITALS: BP 152/55
[2019-02-15 11:49] VITALS: BP 152/55
[2019-02-16] MEDS ORDERED: EPOETIN ALFA 4000UNITS/ML VIAL SUBCUT SCH (21:00)
== END 2019-02-15 12:52 | disposition home health service (06) | DRG 189 ==
LOC: ER 03:49 → 8WST 05:43 → EDBEDREQ 05:49 → EDBEDREQTM 05:49 → ENRESERV 07:05
PROVIDERS: ADMIT Internal Medicine; ATTEND Internal Medicine
PROC: 5A1D70Z Performance of Urinary Filtration, Intermittent, Less than 6 Hours Per Day (ICD-10-PCS; principal; 2019-02-13)
PROC: 5A1D70Z Performance of Urinary Filtration, Intermittent, Less than 6 Hours Per Day (ICD-10-PCS; 2019-02-15)
DX: J96.00 Acute respiratory failure, unspecified whether with hypoxia or hypercapnia (principal); N18.6 End stage renal disease; I50.43 Acute on chronic combined systolic (congestive) and diastolic (congestive) heart failure; I82.409 Acute embolism and thrombosis of unspecified deep veins of unspecified lower extremity; I13.2 Hypertensive heart and chronic kidney disease with heart failure and with stage 5 chronic kidney disease, or end stage renal disease; D64.9 Anemia, unspecified; E11.22 Type 2 diabetes mellitus with diabetic chronic kidney disease; E78.5 Hyperlipidemia, unspecified; E78.00 Pure hypercholesterolemia, unspecified; E87.5 Hyperkalemia; D63.8 Anemia in other chronic diseases classified elsewhere; Z79.899 Other long term (current) drug therapy; Z79.4 Long term (current) use of insulin; Z99.2 Dependence on renal dialysis
CPT/HCPCS: 36415; 71045; 80061; 80305; 82550; 82553; 82962; 83036; 83880; 84484; 93005; 93306; 93970; 96374; 97162; 97166; 99285; J1650; J1815; J2405

== ENCOUNTER 2019-05-09 17:45 | Inpatient (IN) | payer MEDICARE ==
[~2019-05-09] VITALS: Ht 170.2 cm; Wt 88.1 kg
[2019-05-09] MEDS ORDERED: LISI10TA5 MT (18:02)
[2019-05-09] MEDS ORDERED: ASPIRIN 81MG TABLET PO ONE (19:45)
[2019-05-09 19:56] LABS: BASOPHILS % 0.4 % (0.0-2.0); EOSINOPHILS % 1.4 % (0.0-5.0); HEMATOCRIT. 26.3 % (36.0-48.0); HEMOGLOBIN. 8.9 g/dL (12.0-16.0); LYMPHOCYTES % 12.2 % (20.0-50.0); MEAN CORPUSCULAR HEMOGLOBIN 29.4 pg (28.0-32.0); MEAN CORPUSCULAR VOLUME 87.1 fL (81.0-99.0); MEAN PLATELET VOLUME 7.9 fl (7.4-10.4); MONOCYTES % 13.4 % (2.0-8.0); NEUTROPHILS % 72.6 % (40.0-76.0); PLATELET 220 x1000/uL (130-400); RED BLOOD CELL COUNT 3.02 mill/uL (4.2-5.4)
[2019-05-09 20:02] LABS: CHLORIDE 93 mEq/L (98-107)
[2019-05-09 20:04] LABS: D-DIMER 0.84 mg/L FEU (<0.50); INR 1.1; PARTIAL THROMBOPLASTIN TIME 32.8 sec (23.4-31.0); PROTHROMBIN TIME 11.6 sec (9.6-11.0)
[2019-05-09] MEDS ORDERED: NITROGLYCERIN OINT 1GM/INCH UDPKT TD ONE (21:15)
[2019-05-09] MEDS ORDERED: DEXTROSE 50% WATER 50ML SYRINGE IV PRN (22:00)
[2019-05-09] MEDS ORDERED: ACETAMINOPHEN 325MG TABLET PO PRN (22:00)
[2019-05-09] MEDS ORDERED: LORAZEPAM 0.5MG TABLET PO PRN (22:00)
[2019-05-09] MEDS ORDERED: DOCUSATE SODIUM 100MG CAPSULE PO PRN (22:00)
[2019-05-09] MEDS ORDERED: DIPHENHYDRAMINE 50MG/ML VIAL IV PRN (22:00)
[2019-05-09] MEDS ORDERED: ONDANSETRON HCL 4MG/2ML INJ IV PRN (22:00)
[2019-05-09] MEDS ORDERED: IPRATROPIUM/ALBUTEROL 0.5-3(2.5)MG/3ML NEB HHN PRN (22:00)
[2019-05-09] MEDS ORDERED: GUAIFENESIN 200MG/10ML SUGAR FREE UDC PO PRN (22:00)
[2019-05-09] MEDS ORDERED: NITROGLYCERIN 0.4MG TABLET SL SL PRN (22:00)
[2019-05-09] MEDS ORDERED: CLONIDINE 0.1MG TABLET PO PRN (22:00)
[2019-05-09] MEDS ORDERED: MAGNESIUM/ALUMINUM HYDROXIDE/SIMETHICONE 30ML UDC PO PRN (22:00)
[2019-05-09] MEDS ORDERED: ENOXAPARIN 40MG/0.4ML SYR SUBCUT SCH (22:00)
[2019-05-09] MEDS ORDERED: TRAMADOL 50MG TABLET PO PRN (22:00)
[2019-05-09] MEDS ORDERED: POTASSIUM CHLORIDE 20MEQ TABLET SR PO NR (23:30)
[2019-05-10 00:15] LABS: CREATINE KINASE MB FRACTION 1.1 ng/mL (0.5-3.6)
[2019-05-10 05:46] LABS: CREATINE KINASE MB FRACTION 1.5 ng/mL (0.5-3.6)
[2019-05-10 09:00] VITALS: BP 159/84
[2019-05-10] MEDS ORDERED: FAMOTIDINE 20MG TABLET PO SCH (09:00)
[2019-05-10] MEDS: ASPIRIN 325MG EC TABLET PO SCH (10:13)
[2019-05-10] MEDS: LISINOPRIL 20MG TABLET PO SCH ×2 (10:13→21:00)
[2019-05-10] MEDS: FAMOTIDINE 20MG TABLET PO SCH (10:13)
[2019-05-10] MEDS: FOLIC ACID/VITAMIN B COMP W-C TABLET PO SCH (10:14)
[2019-05-10] MEDS: AMLODIPINE 10MG TABLET PO SCH (10:14)
[2019-05-10] MEDS: SEVELAMER CARBONATE 800 MG TABLET PO SCH ×3 (10:14→18:15)
[2019-05-10] MEDS: ENOXAPARIN 30MG/0.3ML SYR SUBCUT SCH (10:15)
[2019-05-10 12:00] VITALS: BP 155/85
[2019-05-10] MEDS: INSULIN LISPRO 100 UNITS/ML SUBCUT SCH ×3 (12:50→21:00)
[2019-05-10] MEDS: BLOOD SUGAR DIAGNOSTIC STRIP TEST SCH ×3 (12:58→21:05)
[2019-05-10 16:00] VITALS: BP 129/73
[2019-05-10 20:50] VITALS: BP 147/77
[2019-05-10] MEDS ORDERED: ZOLPIDEM TARTRATE 5MG TABLET PO PRN (21:00)
[2019-05-11 00:17] VITALS: BP 141/73
[2019-05-11 04:11] VITALS: BP 153/84
[2019-05-11] MEDS: BLOOD SUGAR DIAGNOSTIC STRIP TEST SCH ×4 (06:20→20:31)
[2019-05-11] MEDS: INSULIN LISPRO 100 UNITS/ML SUBCUT SCH ×4 (06:50→21:41)
[2019-05-11 07:57] VITALS: BP_SYST 139; BP_SYST 153; BP_DIAS 72; BP_DIAS 80
[2019-05-11] MEDS: FAMOTIDINE 20MG TABLET PO SCH (09:00)
[2019-05-11] MEDS: FOLIC ACID/VITAMIN B COMP W-C TABLET PO SCH (09:10)
[2019-05-11] MEDS: ASPIRIN 325MG EC TABLET PO SCH (09:10)
[2019-05-11] MEDS: SEVELAMER CARBONATE 800 MG TABLET PO SCH ×3 (09:10→17:59)
[2019-05-11] MEDS: AMLODIPINE 10MG TABLET PO SCH (09:11)
[2019-05-11] MEDS: LISINOPRIL 20MG TABLET PO SCH ×2 (09:12→21:39)
[2019-05-11] MEDS: ENOXAPARIN 30MG/0.3ML SYR SUBCUT SCH (09:12)
[2019-05-11 12:05] LABS: BASOPHILS % 1.5 % (0.0-2.0); EOSINOPHILS % 1.6 % (0.0-5.0); HEMATOCRIT. 27.6 % (36.0-48.0); HEMOGLOBIN. 9.3 g/dL (12.0-16.0); LYMPHOCYTES % 9.1 % (20.0-50.0); MEAN CORPUSCULAR HEMOGLOBIN 29.1 pg (28.0-32.0); MEAN CORPUSCULAR VOLUME 86.3 fL (81.0-99.0); MEAN PLATELET VOLUME 7.1 fl (7.4-10.4); MONOCYTES % 8.9 % (2.0-8.0); NEUTROPHILS % 78.9 % (40.0-76.0); PLATELET 218 x1000/uL (130-400); RED BLOOD CELL COUNT 3.19 mill/uL (4.2-5.4); RED CELL DISTRIBUTION WIDTH 17.6 % (11.6-14.6)
[2019-05-11 12:08] VITALS: BP 142/79
[2019-05-11 16:08] VITALS: BP 144/78
[2019-05-11 20:00] VITALS: BP 144/68
[2019-05-12 00:48] VITALS: BP 138/71
[2019-05-12 04:09] VITALS: BP 142/67
[2019-05-12] MEDS: INSULIN LISPRO 100 UNITS/ML SUBCUT SCH ×2 (07:50→12:41)
[2019-05-12] MEDS: BLOOD SUGAR DIAGNOSTIC STRIP TEST SCH ×2 (08:10→12:38)
[2019-05-12] MEDS: SEVELAMER CARBONATE 800 MG TABLET PO SCH ×2 (08:43→12:41)
[2019-05-12] MEDS: FAMOTIDINE 20MG TABLET PO SCH (08:43)
[2019-05-12] MEDS: FOLIC ACID/VITAMIN B COMP W-C TABLET PO SCH (08:43)
[2019-05-12] MEDS: ASPIRIN 325MG EC TABLET PO SCH (08:43)
[2019-05-12] MEDS: ENOXAPARIN 30MG/0.3ML SYR SUBCUT SCH (08:44)
[2019-05-12] MEDS: LISINOPRIL 20MG TABLET PO SCH (09:00)
[2019-05-12] MEDS: AMLODIPINE 10MG TABLET PO SCH (09:00)
[2019-05-12] MEDS ORDERED: EPOETIN ALFA 4000UNITS/ML VIAL SUBCUT NR (21:00)
== END 2019-05-12 12:50 | disposition home health service (06) | DRG 291 ==
LOC: ER 18:37 → 6WST 21:36 → EDBEDREQ 21:41 → SUPCPDRO 21:43 → ENRESERV 05-10 08:28 → CANRESERV 05-10 08:28
PROVIDERS: ADMIT Internal Medicine; ATTEND Internal Medicine
PROC: 5A1D70Z Performance of Urinary Filtration, Intermittent, Less than 6 Hours Per Day (ICD-10-PCS; principal; 2019-05-10)
PROC: 5A1D70Z Performance of Urinary Filtration, Intermittent, Less than 6 Hours Per Day (ICD-10-PCS; 2019-05-11)
DX: I13.2 Hypertensive heart and chronic kidney disease with heart failure and with stage 5 chronic kidney disease, or end stage renal disease (principal); I50.33 Acute on chronic diastolic (congestive) heart failure; N18.6 End stage renal disease; E44.1 Mild protein-calorie malnutrition; E87.1 Hypo-osmolality and hyponatremia; D63.8 Anemia in other chronic diseases classified elsewhere; E11.22 Type 2 diabetes mellitus with diabetic chronic kidney disease; E87.6 Hypokalemia; E83.52 Hypercalcemia; E78.00 Pure hypercholesterolemia, unspecified; E66.3 Overweight; Z99.2 Dependence on renal dialysis; Z79.4 Long term (current) use of insulin; Z79.899 Other long term (current) drug therapy; Z68.30 Body mass index [BMI] 30.0-30.9, adult
CPT/HCPCS: 36415; 71045; 78582; 80048; 82550; 82553; 82962; 83880; 84484; 85379; 93005; 93970; 97116; 97162; 97166; 99285; A9558; J1200; J1650; J1815; J7620

== ENCOUNTER 2019-05-28 13:17 | Emergency (ER) | payer MEDICARE ==
[~2019-05-28] VITALS: Ht 167.6 cm; Wt 84.0 kg
[~2019-05-28 13:17] MED LIST changes: +LISI10TA5 MT
[2019-05-28 14:11] VITALS: BP 160/80
[2019-05-28] MEDS ORDERED: ALBUTEROL (0.083%) 2.5MG/3ML NEB HHN ONE (14:15)
[2019-05-28 15:13] LABS: BASOPHILS % 0.2 % (0.0-2.0); EOSINOPHILS % 1.8 % (0.0-5.0); HEMATOCRIT. 31.1 % (36.0-48.0); HEMOGLOBIN. 10.6 g/dL (12.0-16.0); LYMPHOCYTES % 8.7 % (20.0-50.0); MEAN CORPUSCULAR HEMOGLOBIN 29.8 pg (28.0-32.0); MEAN CORPUSCULAR VOLUME 87.1 fL (81.0-99.0); MEAN PLATELET VOLUME 8.5 fl (7.4-10.4); MONOCYTES % 12.3 % (2.0-8.0); PLATELET 176 x1000/uL (130-400); RED BLOOD CELL COUNT 3.56 mill/uL (4.2-5.4); RED CELL DISTRIBUTION WIDTH 18.1 % (11.6-14.6)
[2019-05-28 15:19] LABS: CHLORIDE 91 mEq/L (98-107)
[2019-05-28] MEDS ORDERED: HYDROCODONE/ACETAMINOPHEN 5/325MG TABLET PO PRN (19:00)
[2019-05-28] MEDS ORDERED: DIPHENHYDRAMINE 50MG/ML VIAL IV PRN (19:00)
[2019-05-28] MEDS ORDERED: GUAIFENESIN 200MG/10ML SUGAR FREE UDC PO PRN (19:00)
[2019-05-28] MEDS ORDERED: AMLODIPINE 10MG TABLET PO SCH (19:00)
[2019-05-28] MEDS ORDERED: LEVOFLOXACIN 500MG PREMIX 100 ML IV SCH (19:00)
[2019-05-28] MEDS ORDERED: ONDANSETRON HCL 4MG/2ML INJ IV PRN (19:00)
[2019-05-28] MEDS ORDERED: IPRATROPIUM/ALBUTEROL 0.5-3(2.5)MG/3ML NEB NEB PRN (19:00)
[2019-05-28] MEDS ORDERED: MAGNESIUM/ALUMINUM HYDROXIDE/SIMETHICONE 30ML UDC PO PRN (19:00)
[2019-05-28] MEDS ORDERED: ENOXAPARIN 40MG/0.4ML SYR SUBCUT SCH (19:00)
[2019-05-28] MEDS ORDERED: CLONIDINE 0.1MG TABLET PO PRN (19:00)
[2019-05-28] MEDS ORDERED: DOCUSATE SODIUM 100MG CAPSULE PO PRN (19:00)
[2019-05-29] MEDS ORDERED: CINACALCET HCL 30MG TABLET PO SCH (09:00)
[2019-05-29] MEDS ORDERED: ASPIRIN 81MG EC TABLET PO SCH (09:00)
[2019-05-29] MEDS ORDERED: LISINOPRIL 10MG TABLET PO SCH (09:00)
[2019-05-29] MEDS ORDERED: FOLIC ACID/VITAMIN B COMP W-C TABLET PO SCH (09:00)
== END 2019-05-28 18:57 | disposition left against medical advice (07) ==
LOC: ER 13:17 → CANBEDREQ 18:36 → SUPCPDRO 18:48 → ER 18:57
DX: R06.03 Acute respiratory distress (principal); E87.70 Fluid overload, unspecified; I12.0 Hypertensive chronic kidney disease with stage 5 chronic kidney disease or end stage renal disease; E11.22 Type 2 diabetes mellitus with diabetic chronic kidney disease; N18.6 End stage renal disease; Z99.2 Dependence on renal dialysis; Z79.899 Other long term (current) drug therapy
CPT/HCPCS: 36415; 71045; 80053; 84484; 85025; 93005; 94640; 99284; J7611

== ENCOUNTER 2019-08-02 15:56 | Emergency (ER) | payer MEDICARE ==
[~2019-08-02] VITALS: Ht 167.6 cm; Wt 85.0 kg
[2019-08-02 16:04] VITALS: BP 112/94
== END 2019-08-02 19:54 | disposition left against medical advice (07) ==
LOC: ER 15:56
DX: R06.02 Shortness of breath (principal); Z53.21 Procedure and treatment not carried out due to patient leaving prior to being seen by health care provider

== ENCOUNTER 2019-08-06 10:30 | Inpatient (IN) | payer MEDICARE ==
[~2019-08-06] VITALS: Ht 170.2 cm; Wt 78.5 kg
[2019-08-06 11:46] LABS: BASOPHILS % 0.8 % (0.0-2.0); EOSINOPHILS % 1.8 % (0.0-5.0); HEMATOCRIT. 27.6 % (36.0-48.0); HEMOGLOBIN. 9.2 g/dL (12.0-16.0); LYMPHOCYTES % 12.4 % (20.0-50.0); MEAN CORPUSCULAR HEMOGLOBIN 28.9 pg (28.0-32.0); MEAN CORPUSCULAR VOLUME 87.3 fL (81.0-99.0); MEAN PLATELET VOLUME 6.6 fl (7.4-10.4); MONOCYTES % 10.8 % (2.0-8.0); NEUTROPHILS % 74.2 % (40.0-76.0); PLATELET 294 x1000/uL (130-400); RED BLOOD CELL COUNT 3.16 mill/uL (4.2-5.4); RED CELL DISTRIBUTION WIDTH 20.2 % (11.6-14.6)
[2019-08-06 11:52] LABS: CHLORIDE 95 mEq/L (98-107)
[2019-08-06 21:10] VITALS: BP 145/80
[2019-08-06] MEDS ORDERED: GUAIFENESIN 200MG/10ML SUGAR FREE UDC PO PRN (23:15)
[2019-08-06] MEDS ORDERED: LORAZEPAM 0.5MG TABLET PO PRN (23:15)
[2019-08-06] MEDS ORDERED: MAGNESIUM/ALUMINUM HYDROXIDE/SIMETHICONE 30ML UDC PO PRN (23:15)
[2019-08-06] MEDS ORDERED: HYDRALAZINE 20MG/ML VIAL IV PRN (23:15)
[2019-08-06] MEDS ORDERED: IPRATROPIUM/ALBUTEROL 0.5-3(2.5)MG/3ML NEB HHN PRN (23:15)
[2019-08-06] MEDS ORDERED: ACETAMINOPHEN 325MG TABLET PO PRN (23:15)
[2019-08-06] MEDS ORDERED: DIPHENHYDRAMINE 50MG/ML VIAL IV PRN (23:15)
[2019-08-06] MEDS ORDERED: CLONIDINE 0.1MG TABLET PO PRN (23:15)
[2019-08-06] MEDS ORDERED: ONDANSETRON HCL 4MG/2ML INJ IV PRN (23:15)
[2019-08-07] VITALS: BP 123/66
[2019-08-07 04:00] VITALS: BP 151/72
[2019-08-07] MEDS: SODIUM CHLORIDE 0.9% INJ 3ML FLUSH IVF SCH ×3 (06:29→22:36)
[2019-08-07 08:00] VITALS: BP 137/64
[2019-08-07] MEDS: LISINOPRIL 10MG TABLET PO SCH ×2 (08:54→22:36)
[2019-08-07] MEDS: AMLODIPINE 10MG TABLET PO SCH (08:54)
[2019-08-07] MEDS: FOLIC ACID/VITAMIN B COMP W-C TABLET PO SCH (08:54)
[2019-08-07] MEDS: ENOXAPARIN 30MG/0.3ML SYR SUBCUT SCH (08:55)
[2019-08-07 12:00] VITALS: BP 140/77
[2019-08-07] MEDS ORDERED: PROMETHAZINE/DEXTROMETHORPHAN 6.25-15MG/5ML BOTTLE 120ML PO PRN (13:30)
[2019-08-07] MEDS ORDERED: GUAIFENESIN-DM 200MG-20MG/10ML UDC PO PRN (13:45)
[2019-08-07 16:00] VITALS: BP 130/67
[2019-08-07] MEDS: IPRATROPIUM/ALBUTEROL 0.5-3(2.5)MG/3ML NEB HHN SCH ×2 (16:31→20:27)
[2019-08-07 20:00] VITALS: BP 130/59
[2019-08-07] MEDS: GUAIFENESIN 600MG ER TABLET PO SCH (22:36)
[2019-08-07] MEDS: FAMOTIDINE 20MG TABLET PO SCH (22:36)
[2019-08-07] MEDS: EPOETIN ALFA 4000UNITS/ML VIAL SUBCUT SCH (23:29)
[2019-08-08] VITALS: BP 141/74
[2019-08-08] MEDS: IPRATROPIUM/ALBUTEROL 0.5-3(2.5)MG/3ML NEB HHN SCH ×4 (01:41→21:35)
[2019-08-08 04:00] VITALS: BP 146/70
[2019-08-08] MEDS: SODIUM CHLORIDE 0.9% INJ 3ML FLUSH IVF SCH ×3 (05:36→21:34)
[2019-08-08 08:00] VITALS: BP 139/63
[2019-08-08] MEDS: ENOXAPARIN 30MG/0.3ML SYR SUBCUT SCH (09:00)
[2019-08-08] MEDS: GUAIFENESIN 600MG ER TABLET PO SCH ×2 (09:17→21:34)
[2019-08-08] MEDS: AMLODIPINE 10MG TABLET PO SCH (09:17)
[2019-08-08] MEDS: LISINOPRIL 10MG TABLET PO SCH ×2 (09:17→21:33)
[2019-08-08] MEDS: FOLIC ACID/VITAMIN B COMP W-C TABLET PO SCH (09:17)
[2019-08-08 12:00] VITALS: BP 120/81
[2019-08-08 16:00] VITALS: BP 127/75
[2019-08-08 20:00] VITALS: BP 139/66
[2019-08-08] MEDS: FAMOTIDINE 20MG TABLET PO SCH (21:34)
[2019-08-08] MEDS: EPOETIN ALFA 4000UNITS/ML VIAL SUBCUT SCH (23:20)
[2019-08-09] VITALS: BP 141/67
[2019-08-09] MEDS: IPRATROPIUM/ALBUTEROL 0.5-3(2.5)MG/3ML NEB HHN SCH (01:13)
[2019-08-09 04:00] VITALS: BP 125/64
[2019-08-09] MEDS: SODIUM CHLORIDE 0.9% INJ 3ML FLUSH IVF SCH (06:24)
[2019-08-09 08:00] VITALS: BP 152/77
[2019-08-09 08:04] LABS: EOSINOPHILS % 1.6 % (0.0-5.0); HEMOGLOBIN. 8.5 g/dL (12.0-16.0); LYMPHOCYTES % 11.6 % (20.0-50.0); MEAN CORPUSCULAR HEMOGLOBIN 29.7 pg (28.0-32.0); MEAN CORPUSCULAR VOLUME 87.2 fL (81.0-99.0); MEAN PLATELET VOLUME 6.8 fl (7.4-10.4); MONOCYTES % 11.6 % (2.0-8.0); NEUTROPHILS % 74.2 % (40.0-76.0); PLATELET 353 x1000/uL (130-400); RED BLOOD CELL COUNT 2.87 mill/uL (4.2-5.4); RED CELL DISTRIBUTION WIDTH 20.1 % (11.6-14.6)
[2019-08-09] MEDS: ENOXAPARIN 30MG/0.3ML SYR SUBCUT SCH ×2 (09:00→09:12)
[2019-08-09] MEDS: LISINOPRIL 10MG TABLET PO SCH (09:11)
[2019-08-09] MEDS: AMLODIPINE 10MG TABLET PO SCH (09:11)
[2019-08-09] MEDS: FOLIC ACID/VITAMIN B COMP W-C TABLET PO SCH (09:11)
[2019-08-09] MEDS: GUAIFENESIN 600MG ER TABLET PO SCH (09:11)
[2019-08-09 09:39] VITALS: BP 152/77
== END 2019-08-09 10:55 | disposition home or self-care (01) | DRG 291 ==
LOC: ER 10:30 → 7WST 12:05 → ENRESERV 18:55 → 7WST 22:01
PROVIDERS: ADMIT Internal Medicine; ATTEND Internal Medicine
PROC: 5A1D70Z Performance of Urinary Filtration, Intermittent, Less than 6 Hours Per Day (ICD-10-PCS; principal; 2019-08-06)
PROC: 5A1D70Z Performance of Urinary Filtration, Intermittent, Less than 6 Hours Per Day (ICD-10-PCS; 2019-08-06)
PROC: 5A1D70Z Performance of Urinary Filtration, Intermittent, Less than 6 Hours Per Day (ICD-10-PCS; 2019-08-08)
DX: I13.2 Hypertensive heart and chronic kidney disease with heart failure and with stage 5 chronic kidney disease, or end stage renal disease (principal); I50.33 Acute on chronic diastolic (congestive) heart failure; N18.6 End stage renal disease; E11.22 Type 2 diabetes mellitus with diabetic chronic kidney disease; D63.8 Anemia in other chronic diseases classified elsewhere; F41.9 Anxiety disorder, unspecified; E66.9 Obesity, unspecified; E78.00 Pure hypercholesterolemia, unspecified; Z82.49 Family history of ischemic heart disease and other diseases of the circulatory system; Z99.2 Dependence on renal dialysis; Z79.899 Other long term (current) drug therapy; Z68.27 Body mass index [BMI] 27.0-27.9, adult
CPT/HCPCS: 36415; 71045; 80048; 83605; 83880; 84484; 85379; 93005; 93306; 99285; J0885; J1650; J7620

== ENCOUNTER 2022-01-31 15:00 | Emergency (ER) | payer MEDICARE ==
[~2022-01-31] VITALS: Ht 170.2 cm; Wt 73.0 kg
[~2022-01-31 15:00] MED LIST changes: +LISI10TA26 MT; -LISI10TA5 MT
[2022-01-31 15:12] VITALS: BP 165/62
[2022-01-31 16:35] LABS: BASOPHILS % 1.1 % (0.0-2.0); EOSINOPHILS % 0.9 % (0.0-5.0); HEMATOCRIT. 29.5 % (36.0-48.0); HEMOGLOBIN. 10.2 g/dL (12.0-16.0); LYMPHOCYTES % 12.5 % (20.0-50.0); MEAN CORPUSCULAR HEMOGLOBIN 34.9 pg (28.0-32.0); MEAN CORPUSCULAR VOLUME 101.2 fL (81.0-99.0); MEAN PLATELET VOLUME 9.1 fl (7.4-10.4); MONOCYTES % 13.2 % (2.0-8.0); NEUTROPHILS % 72.3 % (40.0-76.0); PLATELET 110 x1000/uL (130-400); RED BLOOD CELL COUNT 2.91 mill/uL (4.2-5.4); RED CELL DISTRIBUTION WIDTH 16.9 % (11.6-14.6)
== END 2022-01-31 19:33 | disposition left against medical advice (07) ==
LOC: ER 15:00
DX: S00.12XA Contusion of left eyelid and periocular area, initial encounter (principal); H26.9 Unspecified cataract; D64.9 Anemia, unspecified; D72.819 Decreased white blood cell count, unspecified; W01.0XXA Fall on same level from slipping, tripping and stumbling without subsequent striking against object, initial encounter; Y93.89 Activity, other specified; Y92.530 Ambulatory surgery center as the place of occurrence of the external cause; E11.22 Type 2 diabetes mellitus with diabetic chronic kidney disease; I12.0 Hypertensive chronic kidney disease with stage 5 chronic kidney disease or end stage renal disease; N18.6 End stage renal disease; Z99.2 Dependence on renal dialysis; Z79.899 Other long term (current) drug therapy
CPT/HCPCS: 36415; 70486; 80048; 85025; 99284